=== PATIENT | female | born 1965 | race Caucasian/White ===

== ENCOUNTER 2023-10-25 12:18 | Inpatient (IN) | payer BC ==
[~2023-10-25] VITALS: Ht 157.5 cm; Wt 75.4 kg
[2023-10-25 14:29] LABS: BASOPHILS % (AUTO) 0.4 % (0-1); EOSINOPHILS % (AUTO) 0.2 % (0-6); HEMATOCRIT 42.3 % (35.0-45.0); HEMOGLOBIN 14.4 g/dl (12.0-16.0); LYMPHOCYTES # (AUTO) 1.2 X10'3 (1.1-4.8); LYMPHOCYTES % (AUTO) 12.9 % (21-51); MEAN CORPUSCULAR HEMOGLOBIN 33.3 PG (27.0-31.0); MEAN CORPUSCULAR HGB CONC 34.1 g/dL (33.0-36.5); MEAN CORPUSCULAR VOLUME 97.8 FL (78-98); MEAN PLATELET VOLUME 7.1 FL (7.4-10.4); MONOCYTES # (AUTO) 0.5 X10'3 (0-0.9); MONOCYTES % (AUTO) 5.1 % (2-12); NEUTROPHILS # (AUTO) 7.7 X10'3 (1.8-7.7); NEUTROPHILS % (AUTO) 81.4 % (42-75); PLATELET COUNT 323 X10'3 (140-440); RED BLOOD COUNT 4.33 X10'6 (4.20-5.60); RED CELL DISTRIBUTION WIDTH 13.7 % (11.5-14.5); WHITE BLOOD COUNT 9.5 X10'3 (4.5-11.0)
[2023-10-25 14:40] LABS: ALBUMIN 3.8 G/DL (3.4-5.0); ANION GAP 8 (8-16); BLOOD UREA NITROGEN 12 MG/DL (7-18); BUN/CREATININE RATIO 14.1 (10.0-20.0); CALCIUM 9.1 MG/DL (8.5-10.1); CHLORIDE 105 MMOL/L (99-107); CREATININE 0.85 MG/DL (0.40-0.90); GLUCOSE 100 MG/DL (70-104); POTASSIUM 3.4 MMOL/L (3.5-5.1); SODIUM 141 MMOL/L (135-145); TOTAL CARBON DIOXIDE 27.8 MMOL/L (24-32); eCRCL 57 ML/MIN; eGFR 69 ML/MIN
[2023-10-25 14:42] LABS: APTT 27 SECONDS (22-32); PROTHROMBIN TIME 10.6 SECONDS (9.0-12.0)
[2023-10-25] MEDS ORDERED: iohexol 350MG/ML 100ml bottle IV ONE (15:43)
[2023-10-25 16:16] LABS: BILIRUBIN,URINE NEGATIVE (Neg); CLARITY,URINE CLEAR (Clear); COLOR,URINE YELLOW (Yellow); GLUCOSE, URINE NEGATIVE (Neg); KETONES,URINE NEGATIVE (Neg); LEUKOCYTE ESTERASE ,URINE NEGATIVE (Neg); NITRITES, URINE NEGATIVE (Neg); OCCULT BLOOD,URINE NEGATIVE (Neg); PH,URINE 6.5 (4.8-8.0); PROTEIN,URINE NEGATIVE (Neg); UROBILINOGEN,URINE 0.2 E.U/dL (0.2-1.0)
[2023-10-25 16:28] LABS: UA COLLECTION TYPE CLN CATCH MIDSTREAM
[2023-10-25] MEDS ORDERED: NO HOME MEDS (17:47)
[2023-10-25] MEDS: aspirin 81mg tab.chew PO ONE (17:50)
[2023-10-25] MEDS: clopidogrel 300mg tablet PO ONE (18:21)
[2023-10-25 19:13] LABS: HEMOGLOBIN A1C 5.8 % (4.5-6.2)
[2023-10-25 19:18] LABS: CHOL/HDL RATIO 4.8 (0.00-4.99); CHOLESTEROL 190 MG/DL (0-200); HDL CHOLESTEROL 40 MG/DL (35-60); LDL CHOLESTEROL 117 MG/DL (50-100); TRIGLYCERIDES 83 MG/DL (20-135)
[2023-10-25 19:48] LABS: THYROID STIMULATING HORMONE 7.36 ulU/ml (0.34-4.50)
[2023-10-25] MEDS ORDERED: heparin, porcine 5000 units/ml vial SQ SCH (20:00)
[2023-10-25 20:17] LABS: URINE AMPHETAMINE SCREEN NEGATIVE (Neg); URINE BARBITUATE SCREEN NEGATIVE (Neg); URINE BENZODIAZEPINES SCREEN NEGATIVE (Neg); URINE CANNABINOID SCREEN NEGATIVE (Neg); URINE COCAINE SCREEN NEGATIVE (Neg); URINE METHADONE SCREEN NEGATIVE (Neg); URINE OPIATE SCREEN NEGATIVE (Neg); URINE PHENCYCLIDINE SCREEN NEGATIVE (Neg)
[2023-10-25] MEDS: atorvastatin 20mg tablet PO SCH (20:39)
[2023-10-25] MEDS: normal saline 1000ml 1,000 ML IV SCH (20:39)
[2023-10-25 22:05] VITALS: BP 178/96; PULSE 99; RESP 17; TEMP 96.9; O2SAT 98
[2023-10-26] VITALS (13 sets, daily range): BP systolic 105–178; BP diastolic 51–90; PULSE 81–91; RESP 14–20; TEMP 96.8–98.7; O2SAT 93–97
[2023-10-26] MEDS ORDERED: potassium Cl 40MEQ/1/2NS 520ml 520 ML IV PRN (00:55)
[2023-10-26] MEDS: aspirin 81mg, enteric-coated 1 TAB TABLET.DR PO SCH (07:03)
[2023-10-26] MEDS: potassium Cl 20 mEq SR tablet PO PRN (07:04)
[2023-10-26] MEDS: clopidogrel 75mg tablet PO SCH (07:04)
[2023-10-26] MEDS: K and/or MAG REPLACEMENT MC SCH (07:05)
[2023-10-26 09:11] LABS: FREE T4 (FREE THYROXINE) 0.73 NG/DL (0.73-1.40)
[2023-10-26] MEDS: amLODIPine 5mg tablet PO SCH (12:24)
[2023-10-26] MEDS ORDERED: AMLO5TAB16 PO (14:36)
[2023-10-26] MEDS ORDERED: VALS1TAB76 PO (14:36)
[2023-10-26] MEDS ORDERED: ATOR20TA66 PO (14:38)
[2023-10-26] MEDS ORDERED: CLOP75TA34 PO (14:38)
[2023-10-26] MEDS ORDERED: ASPI-1071 PO (14:38)
[2023-10-26] MEDS: losartan 50mg tablet PO SCH (14:43)
[2023-10-26] MEDS: HYDROchlorothiazide 12.5mg capsule PO SCH (14:43)
[2023-10-26] MEDS ORDERED: LEVO25CA4 PO (14:53)
[2023-10-27 06:00] VITALS: BP 122/67; PULSE 91; RESP 16; TEMP 98.4; O2SAT 97
[2023-10-27 06:40] LABS: GLUCOSE 92 MG/DL (70-104)
[2023-10-27 06:41] LABS: ALANINE AMINOTRANSFERASE 26 U/L (12-78); ALBUMIN 3.8 G/DL (3.4-5.0); ALBUMIN/GLOBULIN RATIO 0.9 (1.1-1.5); ALKALINE PHOSPHATASE 107 IU/L (46-116); ANION GAP 11 (8-16); ASPARTATE AMINO TRANSFERASE 26 U/L (10-37); BILIRUBIN,TOTAL 0.5 MG/DL (0.1-1.0); BLOOD UREA NITROGEN 13 MG/DL (7-18); BUN/CREATININE RATIO 17.1 (10.0-20.0); CALCIUM 9.4 MG/DL (8.5-10.1); CHLORIDE 102 MMOL/L (99-107); CREATININE 0.76 MG/DL (0.40-0.90); POTASSIUM 3.5 MMOL/L (3.5-5.1); SODIUM 143 MMOL/L (135-145); TOTAL CARBON DIOXIDE 29.6 MMOL/L (24-32); TOTAL PROTEIN 7.9 G/DL (6.4-8.2); eCRCL 64 ML/MIN; eGFR 78 ML/MIN
[2023-10-27 08:00] VITALS: RESP 16
[2023-10-27 08:51] VITALS: BP_SYST 154; BP_SYST 155; BP_SYST 169; BP_DIAS 73; BP_DIAS 74; BP_DIAS 79; PULSE 83; PULSE 85; PULSE 92
[2023-10-27] MEDS: levoTHYROXINE 25mcg tablet PO SCH (09:09)
[2023-10-27 10:30] VITALS: BP 155/79; PULSE 83; RESP 16; TEMP 98.6; O2SAT 93
[2023-10-27 18:00] VITALS: BP 139/83; PULSE 86; RESP 18; TEMP 97.9; O2SAT 96
[2023-10-27] MEDS ORDERED: LEVO25CA4 PO (18:05)
[2023-10-27] MEDS ORDERED: VALS1TAB76 PO (18:05)
[2023-10-27] MEDS ORDERED: AMLO5TAB16 PO (18:05)
[2023-10-27] MEDS ORDERED: ATOR20TA66 PO (18:05)
[2023-10-27] MEDS ORDERED: ASPI-1265 PO (18:05)
[2023-10-27] MEDS ORDERED: CLOP75TA34 PO (18:05)
== END 2023-10-27 19:05 | disposition home or self-care (01) | DRG 641 ==
LOC: ER 12:19 → ED HOLD 17:41 → ORTHO 4S 22:00
PROVIDERS: ADMIT Family Medicine; ATTEND Family Medicine
PROC: B3251ZZ Computerized Tomography (CT Scan) of Bilateral Common Carotid Arteries using Low Osmolar Contrast (ICD-10-PCS; principal; 2023-10-25)
PROC: B32G1ZZ Computerized Tomography (CT Scan) of Bilateral Vertebral Arteries using Low Osmolar Contrast (ICD-10-PCS; 2023-10-25)
PROC: B32R1ZZ Computerized Tomography (CT Scan) of Intracranial Arteries using Low Osmolar Contrast (ICD-10-PCS; 2023-10-25)
PROC: B3281ZZ Computerized Tomography (CT Scan) of Bilateral Internal Carotid Arteries using Low Osmolar Contrast (ICD-10-PCS; 2023-10-25)
DX: E87.6 Hypokalemia (principal); I10 Essential (primary) hypertension; E03.9 Hypothyroidism, unspecified; Q03.8 Other congenital hydrocephalus; Z86.73 Personal history of transient ischemic attack (TIA), and cerebral infarction without residual deficits; Z87.891 Personal history of nicotine dependence; Z88.1 Allergy status to other antibiotic agents
CPT/HCPCS: 36415; 70450; 70496; 70498; 71045; 80048; 80053; 80061; 80305; 81003; 82088; 82948; 83036; 84244; 84439; 84443; 85025; 85610; 85730; 87081; 93005; 93306; 97116; 97161; 97530; 99285; G0378; J7030; Q9967

== ENCOUNTER 2023-10-31 12:59 | Emergency (ER) | payer BC ==
[~2023-10-31] VITALS: Ht 157.5 cm; Wt 81.8 kg
[~2023-10-31 12:59] MED LIST: AMLO5TAB16 PO; ASPI-1265 PO; ATOR20TA66 PO; CLOP75TA34 PO; LEVO25CA4 PO; NO HOME MEDS; VALS1TAB76 PO
[2023-10-31 13:18] VITALS: TEMP 96.7
[2023-10-31 15:25] VITALS: BP 108/52; PULSE 84; RESP 16; O2SAT 98
== END 2023-10-31 15:52 | disposition home or self-care (01) ==
LOC: ER 12:59
DX: I95.89 Other hypotension (principal); R53.1 Weakness; Z88.1 Allergy status to other antibiotic agents; Z79.899 Other long term (current) drug therapy
CPT/HCPCS: 99284